=== PATIENT | male | born 1965 | race Caucasian/White ===

== ENCOUNTER 2019-05-19 06:26 | Day surgery (SDC) | payer OTHER ==
[~2019-05-19 06:26] MED LIST: Buffered Lidocaine 1% SYRIN* 1 ML/SYRINGE INTRADERM ONE; Dexamethasone IV* 4 MG/ML 1 ML (4 MG) IV SLOW PU ONE; Famotidine TAB* 20 MG PO ONE; Lactated Ringers 1000 ML Bag* 1,000 ML IV SCH
[2019-05-19] MEDS ORDERED: Famotidine TAB* 20 MG ONE (07:45)
[2019-05-19] MEDS ORDERED: Dexamethasone IV* 4 MG/ML 1 ML (4 MG) ONE (07:45)
[2019-05-19] MEDS ORDERED: Buffered Lidocaine 1% SYRIN* 1 ML/SYRINGE INTRADERM ONE (08:25)
[2019-05-19] MEDS ORDERED: Bupivacaine 0.25% SDV PF* 10 ML VIAL INJ ONE (09:29)
[2019-05-19] MEDS ORDERED: Lidocaine 1% INJ* 10 MG/ML 30 ML SDV ONE (09:29)
[2019-05-19] MEDS ORDERED: Propranolol TAB* 80 MG PO ONE (09:33)
[2019-05-19] MEDS ORDERED: fentaNYL* 50 MCG/ML 2 ML VIAL (100 MCG VIAL) ONE ×2 (10:06→10:23)
[2019-05-19] MEDS ORDERED: Midazolam* 1 MG/ML 2 ML VIAL (2 MG) ONE (10:23)
[2019-05-19] MEDS ORDERED: Propofol* 10 MG/ML 20 ML BTL ONE (10:36)
[2019-05-19] MEDS ORDERED: Lidocaine 2% PF * 5 ML VIAL ONE (10:36)
[2019-05-19] MEDS ORDERED: EPHEDrine (Pressors)* 50 MG/ML VIAL ONE (11:17)
[2019-05-19] MEDS ORDERED: oxyCODONE/Acetamin 5/325 MG* TAB PO PRN (11:33)
[2019-05-19] MEDS ORDERED: Naloxone* 0.4 MG/ML 1 ML VIAL IV PRN (11:33)
[2019-05-19] MEDS ORDERED: DiMENhydriNATE IV* 50 MG/ML VIAL IV PUSH PRN (11:33)
[2019-05-19] MEDS ORDERED: fentaNYL* 50 MCG/ML 2 ML VIAL (100 MCG VIAL) IV PRN (11:33)
[2019-05-19] MEDS ORDERED: Acetaminophen TAB* 325 MG PO PRN (11:33)
[2019-05-19] MEDS ORDERED: Ondansetron INJ* 2 MG/ML VIAL ONE (13:09)
--- NOTE | 2019-05-19 14:36 | OP ---
DATE OF OPERATION: 05/19/19 - [facility] DATE OF : 67 SERVICE: General surgery. ATTENDING SURGEON: Mariana Avila MD. AUTOMATIC SILK SCREEN PRINTER: PATRICK Rodríguez, and Bernadette Spivey NP. ANESTHESIOLOGIST: Dr. Adilson Dominguez. ANESTHESIA: General endotracheal anesthesia. PRE-OP DIAGNOSIS: Graves disease. POST-OP DIAGNOSIS: Graves disease. OPERATIVE PROCEDURE: Total thyroidectomy. _DICTATION ENDS HERE_ [id number]/[id number] #: [id number] MTDD
[2019-05-19 17:17] VITALS: BP 157/95
--- NOTE | 2019-05-19 18:48 | OP ---
DATE OF OPERATION: 05/19/19 - [facility] DATE OF : 67 SERVICE: General Surgery. ATTENDING SURGEON: Mariana Avila MD FAMILY RESOURCE MANAGEMENT SPECIALIST: PATRICK Rodríguez and Bernadette Spivey NP ANESTHESIOLOGIST: Dr. Adilson Dominguez. ANESTHESIA: General endotracheal anesthesia. PRE-OP DIAGNOSIS: Graves disease. POST-OP DIAGNOSIS: Graves disease. OPERATIVE PROCEDURE: Total thyroidectomy. INDICATIONS FOR SURGERY: Mr. Spence is a very pleasant 54-year-old gentleman with history of Graves disease that was refractory to medical management. Therefore, he wished to undergo a total thyroidectomy. He understood the risks , benefits, and alternatives of the procedure and he wished to proceed. DESCRIPTION OF PROCEDURE: The patient was brought back to the operating room and placed on the operating table in a supine position. Sequential compression devices were placed in the bilateral lower extremities for DVT prophylaxis. No antibiotics were administered. General endotracheal anesthesia was induced, with a NIMs tube and the electrodes for the nerve monitor were attached. Next, a time-out was performed verifying the patient's name, MR number, and the procedure to be performed prior to administering local anesthesia to the neck. A total of 15 cc of local anesthesia consisting of 0.25% Marcaine and 1% lidocaine was administered to the anterior neck. Next, the neck was prepped and draped in normal sterile fashion, and prior to beginning the procedure, a second time-out was performed verifying the patient's name, MR number, and the procedure to be performed. Next, an approximately 4.5 cm incision was made at the anterior neck in a natural crease line approximately 2 fingerbreadths above the sternal notch. The skin was divided down to the subcutaneous tissue and the platysma was divided. The inferior and superior subplatysmal flaps were then developed and then the median raphe between the strap muscles were identified and divided superiorly and inferiorly. At this point, the isthmus of the thyroid was exposed and was divided at the midline. A tunnel was created underneath the isthmus from superior to inferior extent and the 2 CHARLES veins were divided. The isthmus was taken flush to the left thyroid lobe and once it was divided, it was retracted laterally towards the right thyroid lobe and then medial attachments of the right thyroid lobe were divided. Once these medial attachments were divided, the space of Reeve's was developed. The thyroid was noted to be very enlarged and very vascular making it somewhat difficult to rotate the thyroid lobe medially up and out of the neck; however, eventually this was done. The lateral space to the right thyroid lobe was developed with blunt dissection and then with great care the superior pole vessels were taken down using combination of LigaSure and on 2-0 silk ties. Once this was done, the whole thyroid lobe was rotated medially out of the neck , and the recurrent laryngeal nerve was identified both visually and with the nerve monitor and protected. Once it was identified and traced out, the thyroid lobe was divided off the trachea with the LigaSure. The right upper parathyroid was thought to be identified. However, there were many lymph nodes and soft tissue in this area that made it difficult to definitively identify the right lower parathyroid. Next, attention was returned towards the left thyroid lobe. In a similar fashion, the medial attachments of the trachea were divided. The space to Reeve 's was developed. The lateral attachments to the strap muscles were also from the left thyroid lobe laterally and then the superior pole vessels were taken down using combination of LigaSure and 2-0 silk ties. Once this was done, the thyroid lobe was able to be lifted out of the neck and rotated medially. The left recurrent laryngeal nerve was identified visually and traced out in its entire course. The left upper parathyroid was also definitively identified and protected and preserved on its pedicle. Next, once the recurrent laryngeal nerve was completely identified, the thyroid lobe was taken off of the trachea using LigaSure. Of note, the thyroid lobe was again extremely vascular and so there was some difficulty in taking this off, but with careful dissection, this was done very safely. Both the thyroid lobes were examined for parathyroids and none were identified. They were then taken off the table as specimen after marking their upper poles with a 2-0 silk suture. After this, hemostasis was then obtained in the neck. Tisseel was placed, and the strap muscles were reapproximated using 4-0 Vicryl suture. The platysma was reapproximated using 4-0 Vicryl suture and then the skin was closed using a running 5-0 Prolene suture. A sterile dressing was then placed. The patient's anesthesia was reversed and she was taken to the PACU in stable condition. At the end of case, all counts were correct and I was present during the entirety of the case. [id number] #: [id number] #: [id number] [facility]ENTERJonathan
== END 2019-05-19 19:50 | disposition home or self-care (01) ==
LOC: OR 06:26
PROVIDERS: ATTEND Surgery
DX: E05.00 Thyrotoxicosis with diffuse goiter without thyrotoxic crisis or storm (principal)
CPT/HCPCS: 88307; A9270-GY; C1776; J1100; J2250; J2405; J2704; J3010; J3490